=== PATIENT | female | born 1960 | race Caucasian/White ===

== ENCOUNTER 2022-04-26 11:25 | Emergency (ER) | payer MEDICAID ==
[~2022-04-26] VITALS: Ht 167.6 cm; Wt 66.0 kg
[~2022-04-26 11:25] MED LIST: ALPR0.25 MT; ASPI-1497 MT; ATOR20TA65 MT; LISI10TA26 MT
[2022-04-26 13:00] LABS: BASOPHILS % 0.3 % (0.0-2.0); EOSINOPHILS % 0.5 % (0.0-5.0); HEMATOCRIT. 42.4 % (36.0-48.0); HEMOGLOBIN. 14.4 g/dL (12.0-16.0); LYMPHOCYTES % 14.2 % (20.0-50.0); MEAN CORPUSCULAR HEMOGLOBIN 32.6 pg (28.0-32.0); MEAN CORPUSCULAR VOLUME 96.3 fL (81.0-99.0); MEAN PLATELET VOLUME 7.8 fl (7.4-10.4); MONOCYTES % 7.6 % (2.0-8.0); NEUTROPHILS % 77.4 % (40.0-76.0); PLATELET 347 x1000/uL (130-400); RED CELL DISTRIBUTION WIDTH 13.2 % (11.6-14.6)
[2022-04-26 13:05] LABS: CHLORIDE 101 mEq/L (98-107)
[2022-04-26 15:00] VITALS: BP 129/79
== END 2022-04-26 15:11 | disposition home or self-care (01) ==
LOC: ER 11:25
DX: R20.0 Anesthesia of skin (principal); E78.00 Pure hypercholesterolemia, unspecified; I10 Essential (primary) hypertension; Z79.82 Long term (current) use of aspirin; Z86.73 Personal history of transient ischemic attack (TIA), and cerebral infarction without residual deficits
CPT/HCPCS: 36415; 71045; 80053; 85025; 93005; 99285